=== PATIENT | female | born 1945 | race Caucasian/White ===

== ENCOUNTER 2016-07-13 12:57 | Emergency (ER) | payer OTHER ==
[~2016-07-13] VITALS: Wt 100.0 kg
[2016-07-13] MEDS ORDERED: IPRATROPIUM (NEB) 0.5 MG/2.5 ML AMP NEB STA (13:44)
[2016-07-13] MEDS ORDERED: predniSONE 20 MG TAB PO STA (13:44)
[2016-07-13] MEDS ORDERED: ALBUTEROL 0.5% (NEB) 2.5 MG/0.5 ML AMP NEB STA (13:44)
[2016-07-13] MEDS ORDERED: OMEP20CA16 PO (14:37)
--- NOTE | 2016-07-13 14:43 | RADRPT ---
PROCEDURE: XR Chest. CLINICAL INDICATION: History of asthma. Cough and shortness of breath. TECHNIQUE: Single frontal view. COMPARISON: None. FINDINGS: The lungs are clear. The heart size is normal. There is calcification in the aorta consistent with atherosclerosis. There is no pleural effusion. There is no pneumothorax. IMPRESSION: 1. Atherosclerosis. 2. Clear lungs. RPTAT: QQ .Christian Carvalho MD, MD Date Time Electronically viewed and signed by .Christian Carvalho MD, MD on 07/13/2016 14:42 .R/
--- NOTE | 2016-07-13 14:50 | ERD ---
ER Documentation Chief Complaint Date/Time DATE: 07/13/16 TIME: 14:47 Chief Complaint COUGH CONGESTION FOR 4 DAYS. MOD SOB. NO CP. NO N/V NOTED HPI This is a 71-year-old female with a history of asthma who presents to the emergency room for evaluation of a dry cough, congestion for the past 4 days. The patient does state that she has an inhaler at home and states that it is only helping a small amount. The patient denies any fevers or productive sputum and came to the ER today for evaluation. She is also denying any chest pain or palpitations. ROS All systems reviewed and are negative except as per history of present illness. Medications Home Meds Reported Medications Omeprazole* (Omeprazole*) 20 Mg Capsule.dr, 20 MG PO DAILY, #30 CAP 07/13/16 Allergies Allergies: Coded Allergies: No Known Allergy (Unverified , 07/13/16) PMhx/Soc Medical and Surgical Hx: pt denies Surgical Hx History of Surgery: No Anesthesia Reaction: No Hx Neurological Disorder: No Hx Respiratory Disorders: Yes (ASTHMA ) Hx Cardiac Disorders: Yes (HTN) Hx Psychiatric Problems: No Hx Miscellaneous Medical Probl: No Hx Alcohol Use: No Hx Substance Use: No Hx Tobacco Use: No Smoking Status: Never smoker Physical Exam Vitals Vital Signs Date Time Temp Pulse Resp B/P Pulse Ox O2 Delivery O2 Flow Rate FiO2 07/13/16 14:21 82 22 99 Nasal Cannula 2.0 07/13/16 14:09 Nasal Cannula 2 07/13/16 14:09 98.8 76 20 165/83 98 Room Air 07/13/16 14:09 Nasal Cannula 2.0 07/13/16 13:14 98.8 86 20 192/85 96 Physical Exam INITIAL VITAL SIGNS: Reviewed by me GENERAL: The patient is well developed and appropriate for usual state of health in no apparent distress HEENT: Pupils equal, round, and reactive to light. EOMI. There is no scleral icterus. NECK: C-spine is soft and supple, there is no meningismus. There is no cervical lymphadenopathy. LUNGS: And expiratory wheezing heard bilaterally, no rales or rhonchi HEART: Regular rate and rhythm, no murmurs, clicks, rubs or gallops. ABDOMEN: Soft, non-tender, non-distended. There are bowel sounds in all four quadrants. No rebound or guarding. EXTREMITIES: There is no peripheral cyanosis or edema. No focal swelling or erythema. NEUROLOGICAL: The patient moves all four extremities with 5/5 strength. Cranial nerves II - XII are intact. Normal gait. Alert and oriented SKIN: There is no apparent rash or petechiae. HEME/LYMPHATIC: There is no evidence of excessive bruising or lymphedema. PSYCHIATRIC: The patient does not appear anxious or depressed. Results 24 hrs Current Medications Medications (Trade) Dose Ordered Sig/Magalis Route PRN Reason Start Time Stop Time Status Last Admin Dose Admin Albuterol (Proventil 0.5% (Neb)) 10 mg ONCE STAT NEB 07/13/16 13:44 07/13/16 13:46 DC 07/13/16 14:20 Ipratropium [place] (Atrovent 0.02% (Neb)) 0.5 mg ONCE STAT NEB 07/13/16 13:44 07/13/16 13:46 DC 07/13/16 14:20 Prednisone (Prednisone) 60 mg ONCE STAT PO 07/13/16 13:44 07/13/16 13:46 DC 07/13/16 13:50 Procedures/MDM EKG: Rate/Rhythm: [Normal Sinus Rhythm] QRS, ST, T-waves: [No changes consistent w/ acute ischemia] Impression: [No evidence of ischemia or arrhythmia] Chest X-ray 1V Interpreted by me: Soft Tissue: No acute abnormalities Bones: No acute abnormalities Mediastinum/Cardiac Silhouette/Lungs: [No acute abnormalities] This is a 71-year-old female who presents to the emergency room for evaluation of shortness of breath and a dry cough. She did have mild wheezing on my examination and was given a breathing treatment. EKG is nonischemic, chest x- ray is clear. She is not hypoxic, not tachycardic. In no respiratory distress after the breathing treatment. She does say she feels better. The patient was given Robitussin in the emergency room as well as prednisone. She will be discharged home with a prescription for Robitussin and prednisone with instructions to follow-up with her primary care physician or return to the ER if her symptoms worsen. Departure Diagnosis: Primary Impression: Asthmatic bronchitis Condition: Stable ASHLYN KELLEY DO Jul 13, 2016 14:50
[2016-07-13] MEDS ORDERED: PRED20TA PO (14:51)
[2016-07-13] MEDS ORDERED: UDROBDM PO (14:51)
[2016-07-13] MEDS ORDERED: GUAIFENESIN/DM 5ML CUP PO ONE (15:00)
[2016-07-13 15:40] VITALS: BP 153/73; PULSE 82; RESP 20; TEMP 97.9
== END 2016-07-13 15:52 | disposition home or self-care (01) ==
LOC: E/R 12:57
DX: J45.901 Unspecified asthma with (acute) exacerbation (principal); I10 Essential (primary) hypertension
CPT/HCPCS: 71010; 94664; 99284; J7512

== ENCOUNTER 2016-08-16 11:08 | Emergency (ER) | payer OTHER ==
[~2016-08-16] VITALS: Ht 165.1 cm; Wt 98.5 kg
[~2016-08-16 11:08] MED LIST: OMEP20CA16 PO; PRED20TA PO; UDROBDM PO
[2016-08-16 11:26] VITALS: Ht 165.1 cm; Wt 98.5 kg
[2016-08-16] MEDS ORDERED: FAMOTIDINE 20 MG INJ IV STA (12:15)
[2016-08-16] MEDS ORDERED: morphine 2 MG INJ IV STA (12:15)
[2016-08-16] MEDS ORDERED: SOD CHLORIDE 0.9% 1,000 ML IV STA (12:15)
[2016-08-16] MEDS ORDERED: ONDANSETRON 4 MG INJ IV STA (12:15)
[2016-08-16 13:07] LABS: ADD SCAN DIFF NO
[2016-08-16 13:09] LABS: BASOPHILS % 0.3 % (0.0-2.0); EOSINOPHILS % 0.6 % (0.0-7.0); HEMATOCRIT 44.6 % (37.0-47.0); HEMOGLOBIN 14.8 g/dl (12.0-16.0); LYMPHOCYTES # 1.3 10^3/ul (0.8-2.9); LYMPHOCYTES % 19.9 % (15.0-51.0); MEAN CORPUSCULAR HEMOGLOBIN 27.8 pg (29.0-33.0); MEAN CORPUSCULAR HGB CONC 33.2 g/dl (32.0-37.0); MEAN CORPUSCULAR VOLUME 83.7 fl (82.0-101.0); MEAN PLATELET VOLUME 12.7 fl (7.4-10.4); MONOCYTE # 0.7 10^3/ul (0.3-0.9); MONOCYTES % 9.7 % (0.0-11.0); NEUTROPHIL # 4.7 10^3/ul (1.6-7.5); NEUTROPHILS % 69.2 % (39.0-77.0); PLATELET COUNT 158 10^3/UL (140-415); RED BLOOD COUNT 5.33 10^6/ul (4.20-5.40); RED CELL DISTRIBUTION WIDTH 14.9 % (11.5-14.5); WHITE BLOOD COUNT 6.7 10^3/ul (4.8-10.8)
[2016-08-16 13:20] LABS: ALBUMIN 4.1 g/dl (3.3-4.9); POTASSIUM 3.2 mmol/L (3.5-5.1)
[2016-08-16 13:22] LABS: CREATININE 0.61 mg/dl (0.44-1.00)
[2016-08-16 13:23] LABS: ALBUMIN/GLOBULIN RATIO 1.05; BILIRUBIN,INDIRECT 0.2 mg/dl (0-1.1); BILIRUBIN,TOTAL 0.2 mg/dl (0.2-1.3)
[2016-08-16 13:24] LABS: ADD UMIC YES; URINE BILIRUBIN (Dip) NEGATIVE (NEGATIVE); URINE BLOOD (Dip) NEGATIVE (NEGATIVE); URINE COLOR YELLOW (YELLOW); URINE GLUCOSE (Dip) NEGATIVE (NEGATIVE); URINE KETONES (Dip) TRACE (NEGATIVE); URINE LEUKOCYTE ESTERASE (Dip) TRACE (NEGATIVE); URINE NITRITE (Dip) NEGATIVE (NEGATIVE); URINE TOTAL PROTEIN (Dip) TRACE (NEGATIVE); URINE UROBILINOGEN (Dip) 0.2 E.U./dL (0.1-1.0)
--- NOTE | 2016-08-16 13:29 | RADRPT ---
PROCEDURE: CT Abdomen and pelvis without contrast. CLINICAL INDICATION: Left-sided abdominal pain for 3 days TECHNIQUE: CT scan of the abdomen and pelvis with contrast was performed on a multidetector high-r esolution CT scan. . Coronal and sagittal reformatted images were obtained from the axial source i mages. Standard CT scan of the abdomen pelvis without contrast protocols were performed. The total exam CTDI equals 23.45 mGy and the total exam DLP equals 1434.86 mGy-cm. One or more of the following dose reduction techniques were used: - Automated exposure control. - Adjustment of the mA and/or kV according to patient size. Use of iterative reconstruction technique. COMPARISON: None. FINDINGS: The kidneys are normal in size without evidence of calcified urinary calculi. There is mild pyeloca liectasis bilaterally but no hydronephrosis. There is a 3 mm subcapsular lateral right mid renal hyp er density likely a hemorrhagic cyst. There are no other intra renal masses bilaterally. Urinary bl adder is contracted but otherwise unremarkable. There are numerous vascular calcifications posterio r to the urinary bladder. The uterus is anteverted anteflexed with an intrauterine device present. There are no adnexal masses. The liver spleen pancreas adrenal glands are unremarkable. The gallbladder is unremarkable and ther e is no evidence of biliary ductal dilation. Negative for intra-abdominal or free air, free fluid, abscesses or lymphadenopathy. There is a small hiatal hernia. The stomach is otherwise unremarkable. The small bowel is unremark able. The appendix is unremarkable. There is diverticular changes of the sigmoid and descending co eric but no CT scan evidence of diverticulitis. There is atherosclerotic vascular disease of the aorta but no aneurysm. There is a grade 1 anterior spondylolisthesis of L4 on L5 vertebral body. No other subluxations. There are degenerative change s lower thoracic and lumbar spine. There are no acute osseous findings. There are no osteoblastic/ osteolytic lesions. The lung bases are unremarkable. IMPRESSION: 1. No evidence of calcified urinary calculi. Mild pyelocaliectasis bilaterally but no definite hyd ronephrosis. 2. 3 mm subcapsular lateral right mid renal hyper density likely a hemorrhagic cyst. No other init ial masses bilaterally. 3. Diverticulosis of the left colon but no CT scan evidence of diverticulitis. 4. Small hiatal hernia. 5. Negative for intra-abdominal free air free fluid abscesses or lymphadenopathy. RPTAT:AAJJ Lito Glaser Physician Date Time Electronically viewed and signed by Lito Glaser Physician on 08/16/2016 13:28 /
[2016-08-16 13:35] LABS: URINE RBCS NONE SEEN /HPF (0)
--- NOTE | 2016-08-16 13:42 | ERD ---
ER Documentation Chief Complaint Date/Time DATE: 08/16/16 TIME: 13:39 Chief Complaint LEFT LOWER QUADRANT PAIN,X 2 DAYS HPI This 71-year-old female presents to the emergency room for evaluation of left sided abdominal pain for the past 2 days. She denies any aggravating factors for her pain besides urination, denies any relieving factors for her pain. She describes her pain as an aching sharp pain in nature the patient the patient denies any, fever, vaginal bleeding or vaginal discharge, she also denies any nausea, vomiting or diarrhea. The patient came to the emergency room today for evaluation. ROS All systems reviewed and are negative except as per history of present illness. Medications Home Meds Active Scripts Guaifenesin-Dextromethorphan* (Robitussin* DM) 100MG/10MG/5ML Syrup, 10 ML PO Q4H Y for COUGH for 10 Days, ML Prov:ASHLYN KELLEY DO 07/13/16 Prednisone* (Prednisone*) 20 Mg Tab, 40 MG PO DAILY for 4 Days, TAB Prov:ASHLYN KELLEY DO 07/13/16 Reported Medications Omeprazole* (Omeprazole*) 20 Mg Capsule.dr, 20 MG PO DAILY, #30 CAP 07/13/16 Allergies Allergies: Coded Allergies: No Known Allergy (Unverified , 07/13/16) PMhx/Soc History of Surgery: No Anesthesia Reaction: No Hx Neurological Disorder: No Hx Respiratory Disorders: Yes (ASTHMA ) Hx Cardiac Disorders: Yes (HTN) Hx Psychiatric Problems: No Hx Miscellaneous Medical Probl: No Hx Alcohol Use: No Hx Substance Use: No Hx Tobacco Use: No Smoking Status: Never smoker Physical Exam Vitals Vital Signs Date Time Temp Pulse Resp B/P Pulse Ox O2 Delivery O2 Flow Rate FiO2 08/16/16 11:26 98.2 75 18 174/74 98 Physical Exam INITIAL VITAL SIGNS: Reviewed by me GENERAL: The patient is well developed and appropriate for usual state of health in no apparent distress HEENT: Pupils equal, round, and reactive to light. EOMI. There is no scleral icterus. NECK: C-spine is soft and supple, there is no meningismus. There is no cervical lymphadenopathy. LUNGS: Clear to auscultation bilaterally. There are no rales, wheezes or rhonchi. HEART: Regular rate and rhythm, no murmurs, clicks, rubs or gallops. ABDOMEN: Left lower quadrant tenderness to palpation, mild suprapubic tenderness to palpation, otherwise soft, non-tender, non-distended. There are bowel sounds in all four quadrants. No rebound or guarding. EXTREMITIES: There is no peripheral cyanosis or edema. No focal swelling or erythema. NEUROLOGICAL: The patient moves all four extremities with 5/5 strength. Cranial nerves II - XII are intact. Normal gait. Alert and oriented SKIN: There is no apparent rash or petechiae. HEME/LYMPHATIC: There is no evidence of excessive bruising or lymphedema. PSYCHIATRIC: The patient does not appear anxious or depressed. Result Diagram: 08/16/16 1238 08/16/16 1238 Results 24 hrs Laboratory Tests Test 08/16/16 12:38 08/16/16 12:40 White Blood Count 6.710^3/ul Red Blood Count 5.3310^6/ul Hemoglobin 14.8g/dl Hematocrit 44.6% Mean Corpuscular Volume 83.7fl Mean Corpuscular Hemoglobin 27.8pg Mean Corpuscular Hemoglobin Concent 33.2g/dl Red Cell Distribution Width 14.9% Platelet Count 22341^3/UL Mean Platelet Volume 12.7fl Neutrophils % 69.2% Lymphocytes % 19.9% Monocytes % 9.7% Eosinophils % 0.6% Basophils % 0.3% Nucleated Red Blood Cells % 0.0/100WBC Neutrophils # 4.710^3/ul Lymphocytes # 1.310^3/ul Monocytes # 0.710^3/ul Eosinophils # 0.010^3/ul Basophils # 0.010^3/ul Nucleated Red Blood Cells # 0.010^3/ul Sodium Level 141mmol/L Potassium Level 3.2mmol/L Chloride Level 100mmol/L Carbon Dioxide Level 26mmol/L Anion Gap 18 Blood Urea Nitrogen 9mg/dl Creatinine 0.61mg/dl Glucose Level 185mg/dl Calcium Level 9.0mg/dl Total Bilirubin 0.2mg/dl Direct Bilirubin 0.00mg/dl Indirect Bilirubin 0.2mg/dl Aspartate Amino Transf (AST/SGOT) 45IU/L Alanine Aminotransferase (ALT/SGPT) 35IU/L Alkaline Phosphatase 107IU/L Total Protein 8.0g/dl Albumin 4.1g/dl Globulin 3.90g/dl Albumin/Globulin Ratio 1.05 Lipase 124U/L Urine Color YELLOW Urine Clarity CLEAR Urine pH 6.0 Urine Specific [place] 1.025 Urine Ketones TRACE Urine Nitrite NEGATIVE Urine Bilirubin NEGATIVE Urine Urobilinogen 0.2 E.U./dL Urine Leukocyte Esterase TRACE Urine Microscopic RBC NONE SEEN/HPF Urine Microscopic WBC 2-5/HPF Urine Epithelial Cells OCCASIONAL Urine Hemoglobin NEGATIVE Urine Glucose NEGATIVE% Urine Total Protein TRACE Current Medications Medications (Trade) Dose Ordered Sig/Magalis Route PRN Reason Start Time Stop Time Status Last Admin Dose Admin Sodium Chloride (NS) 1,000 ml @ 1,000 mls/hr Q1H STAT IV 08/16/16 12:15 08/16/16 13:14 DC 08/16/16 12:30 Morphine Sulfate (morphine) 2 mg ONCE STAT IV 08/16/16 12:15 08/16/16 12:16 DC 08/16/16 12:30 Ondansetron HCl (Zofran Inj) 4 mg ONCE STAT IV 08/16/16 12:15 08/16/16 12:16 DC 08/16/16 12:30 Famotidine (Pepcid Iv) 20 mg ONCE STAT IV 08/16/16 12:15 08/16/16 12:16 DC 08/16/16 12:30 Potassium Chloride (Klor-Con 10) 30 meq ONCE ONCE PO 08/16/16 14:00 08/16/16 14:01 UNV Procedures/MDM CT abdomen pelvis: 1. No evidence of calcified urinary calculi. Mild pyelocaliectasis bilaterally but no definite hydronephrosis. 2. 3 mm subcapsular lateral right mid renal hyper density likely a hemorrhagic cyst. No other initial masses bilaterally. 3. Diverticulosis of the left colon but no CT scan evidence of diverticulitis. 4. Small hiatal hernia. 5. Negative for intra-abdominal free air free fluid abscesses or lymphadenopathy. This 71-year-old female presents to the emergency room for evaluation of left- sided abdominal pain. When I evaluated her she did have left lower quadrant tenderness to palpation. She also had mild suprapubic tenderness to palpation. I did obtain lab work and CT. Lab work does not show any significant findings except for mild hypokalemia. The patient was given 30 mEq of potassium by mouth. Given her left lower quadrant tenderness a CT of the abdomen pelvis was obtained which does not show any signs of obstruction, or diverticulitis. The patient was given morphine in the emergency room and upon my reevaluation she says she is feeling better. Her urinalysis does have 2-5 white blood cells and positive leukocyte Estrace. Given her pain and worsening of pain with urination this patient will be discharged home with a prescription for ciprofloxacin to take. She will also be given a prescription for Motrin. Departure Diagnosis: Primary Impression: Abdominal pain Additional Impressions: Hypokalemia Cystitis Condition: Stable ASHLYN KELLEY DO Aug 16, 2016 13:42
[2016-08-16] MEDS ORDERED: ALBU90AE INHALATION (13:43)
[2016-08-16] MEDS ORDERED: CIPR500T4 PO (13:44)
[2016-08-16] MEDS ORDERED: IBUP-1542 PO (13:44)
[2016-08-16] MEDS ORDERED: TRAV4OP25 BOTH EYES (13:54)
[2016-08-16] MEDS ORDERED: NIFE30TA2 PO (13:55)
[2016-08-16] MEDS ORDERED: OMEP20CA16 PO (13:59)
[2016-08-16] MEDS ORDERED: HYD25 PO (13:59)
[2016-08-16] MEDS ORDERED: POTASSIUM CHLORIDE (SR) 10 MEQ TAB PO ONE (14:00)
[2016-08-16 14:49] VITALS: BP 128/79; PULSE 81; RESP 18; TEMP 98.2
== END 2016-08-16 14:50 | disposition home or self-care (01) ==
LOC: E/R 11:08
DX: R10.32 Left lower quadrant pain (principal); E87.6 Hypokalemia; J45.909 Unspecified asthma, uncomplicated; I10 Essential (primary) hypertension; N30.90 Cystitis, unspecified without hematuria
CPT/HCPCS: 36415; 74176; 80053; 81001; 83690; 85025; 96374; 96375; 99285; J2270; J2405; J7030; 81003

== ENCOUNTER 2016-08-22 09:35 | Emergency (ER) | payer OTHER ==
[~2016-08-22] VITALS: Wt 100.0 kg
[~2016-08-22 09:35] MED LIST changes: +ALBU90AE INHALATION; +CIPR500T4 PO; +HYD25 PO; +IBUP-1542 PO; +NIFE30TA2 PO; -PRED20TA PO; +TRAV4OP25 BOTH EYES; -UDROBDM PO
[2016-08-22] MEDS ORDERED: ONDANSETRON 4 MG INJ IV STA (09:55)
[2016-08-22] MEDS ORDERED: SOD CHLORIDE 0.9% 1,000 ML IV STA (09:55)
[2016-08-22] MEDS ORDERED: morphine 4 MG/ML VIAL IV STA (09:55)
[2016-08-22 10:25] LABS: ADD SCAN DIFF NO
[2016-08-22 10:30] LABS: BASOPHILS % 0.5 % (0.0-2.0); EOSINOPHILS # 0.1 10^3/ul (0.0-0.5); EOSINOPHILS % 1.2 % (0.0-7.0); HEMOGLOBIN 14.8 g/dl (12.0-16.0); LYMPHOCYTES # 3.7 10^3/ul (0.8-2.9); LYMPHOCYTES % 41.4 % (15.0-51.0); MEAN CORPUSCULAR HEMOGLOBIN 27.2 pg (29.0-33.0); MEAN CORPUSCULAR HGB CONC 32.9 g/dl (32.0-37.0); MEAN CORPUSCULAR VOLUME 82.7 fl (82.0-101.0); MEAN PLATELET VOLUME 12.5 fl (7.4-10.4); MONOCYTE # 0.8 10^3/ul (0.3-0.9); MONOCYTES % 8.9 % (0.0-11.0); NEUTROPHIL # 4.2 10^3/ul (1.6-7.5); NEUTROPHILS % 47.8 % (39.0-77.0); PLATELET COUNT 212 10^3/UL (140-415); RED BLOOD COUNT 5.44 10^6/ul (4.20-5.40); RED CELL DISTRIBUTION WIDTH 14.6 % (11.5-14.5); WHITE BLOOD COUNT 8.8 10^3/ul (4.8-10.8)
[2016-08-22 10:37] LABS: ALBUMIN 4.4 g/dl (3.3-4.9); CHLORIDE 96 mmol/L (97-110)
[2016-08-22 10:38] LABS: POTASSIUM 3.6 mmol/L (3.5-5.1); SODIUM 135 mmol/L (135-144)
[2016-08-22] MEDS ORDERED: SOD CHLORIDE 0.9% 100 ML ONE (10:38)
[2016-08-22] MEDS ORDERED: IODIXANOL LOCM 100 ML BTL ONE (10:38)
[2016-08-22 10:40] LABS: ALBUMIN/GLOBULIN RATIO 1.12; ALKALINE PHOSPHATASE 108 IU/L (42-121); AMYLASE 64 U/L (11-123); ANION GAP 15 (8-16); ASPARTATE AMINO TRANSFERASE 52 IU/L (15-46); BILIRUBIN,INDIRECT 0.9 mg/dl (0-1.1); BILIRUBIN,TOTAL 0.9 mg/dl (0.2-1.3); BLOOD UREA NITROGEN 12 mg/dl (7-20); CARBON DIOXIDE 28 mmol/L (21-31); CREATININE 0.63 mg/dl (0.44-1.00); GLUCOSE 144 mg/dl (70-220); TOTAL PROTEIN 8.3 g/dl (6.1-8.1)
[2016-08-22 10:41] LABS: ALANINE AMINOTRANSFERASE 46 IU/L (13-69); CALCIUM 9.3 mg/dl (8.4-10.2)
[2016-08-22 10:42] LABS: INR 0.96; PROTIME 12.8 Sec (12.2-14.2)
[2016-08-22 10:43] LABS: PARTIAL THROMBOPLASTIN TIME 28.3 Sec (25.0-35.0)
--- NOTE | 2016-08-22 11:25 | RADRPT ---
PROCEDURE: CT Abdomen and Pelvis with contrast. CLINICAL INDICATION: Worsening left lower quadrant pain TECHNIQUE: CT of the abdomen and pelvis was performed on a multi-detector scanner following the un complicated IV administration of 100 cc of Visipaque 320. Coronal and sagittal images were reformat javier from the axial data set. One or more of the following dose reduction techniques were used: auto mated exposure control, adjustment of the mA and/or kV according to patient size, use of iterative reconstruction technique. CTDI = 23.68 mGy. DLP = 1554.2 mGy-cm. COMPARISON: CT, 08/16/2016 FINDINGS: CT abdomen: The lung bases are clear. The heart size is normal, without pericardial effusion. Liver, gallbladd er, biliary tree, pancreas, spleen, adrenal glands and kidneys are unremarkable. There is no urolit hiasis or obstructive uropathy. The stomach is grossly unremarkable. There is no abdominal aortic aneurysm or dissection. Aortic vascular calcifications are present. T here is no retroperitoneal lymphadenopathy. The cynthia hepatis region is clear. CT pelvis: No bowel obstruction, free intraperitoneal air or abscess is identified. Scattered colonic divertic vanessa are noted without diverticulitis. The appendix is well visualized and normal. There is no coli tis. Urinary bladder is unremarkable. IUD is seen within the uterus. Adnexa are grossly unremarka ble. No pelvic mass, free fluid or lymphadenopathy is identified. The surrounding osseous structures are remarkable for degenerative spondylosis of the spine. No ost eolytic or osteoblastic lesion is detected. There is chronic grade 1 anterolisthesis at L4-5 seconda ry to facet arthrosis. IMPRESSION: 1. Scattered colonic diverticula are noted, without diverticulitis. 2. Aortoiliac atherosclerotic calcifications are present. 3. IUD is again seen within the uterus. 4. No mass, lymphadenopathy, or focal acute inflammatory process is identified. RPTAT: EE .Neo Reilly MD, MD Date Time Electronically viewed and signed by .Neo Reilly MD, MD on 08/22/2016 11:24 .R/
[2016-08-22 11:26] LABS: TROPONIN-I < 0.012 ng/ml (0.00-0.12)
--- NOTE | 2016-08-22 12:09 | ERD ---
ER Documentation Chief Complaint Date/Time DATE: 08/22/16 TIME: 12:03 Chief Complaint left side abdominal pain for a few days. seen in er for same no releif HPI This is a 70-year-old Tristanian-speaking female that presents the emergency department complaining of left lower quadrant pain that has been present for the past 8 days. The patient had been seen 5 days prior to arrival on the 2016 in the emergency department for the same pain. She indicated that a CT scan had been performed and states she had diverticulosis. The patient has been taking 600 mg of Motrin which has improved her pain but once the medication wears off she gets a left lower quadrant pain returns. She describes it as a sharp shooting pain that radiates to the left flank region. She denies any frequency urgency or dysuria. She has had no fevers or shaking or chills. She is not currently on antibiotics. She denies any chest pain or pressure that radiates to the neck arm back or jaw. She denies any recent remote trauma to the abdomen. ROS All systems reviewed and are negative except as per history of present illness. Medications Home Meds Active Scripts Ibuprofen* (Motrin*) 600 Mg Tab, 600 MG PO Q8, #30 TAB Prov:ASHLYN KELLEY DO 08/16/16 Ciprofloxacin Hcl* (Ciprofloxacin Hcl*) 500 Mg Tablet, 500 MG PO BID for 7 Days , TAB Prov:ASHLYN KELLEY DO 08/16/16 Reported Medications Omeprazole* (Omeprazole*) 20 Mg Capsule.dr, 20 MG PO DAILY, #30 CAP 08/16/16 Hydrochlorothiazide* (Hydrochlorothiazide*) 25 Mg Tab, 25 MG PO DAILY, #30 TAB 08/16/16 Nifedipine (Procardia Xl) 30 Mg Tab.er.24, 30 MG PO DAILY, TAB 08/16/16 Travoprost* (Travatan*) 0.004%-2.5 Ml Opht, 1 DROP BOTH EYES QHS, #1 BOTTLE 08/16/16 Albuterol Sulfate (Proair Respiclick) 90 Mcg Aer.pow.ba, 1 PUFF INHALATION Q4 Y for PRN, #1 BOTTLE 08/16/16 Discontinued Reported Medications Omeprazole* (Omeprazole*) 20 Mg Capsule.dr, 20 MG PO DAILY, #30 CAP 07/13/16 Discontinued Scripts Guaifenesin-Dextromethorphan* (Robitussin* DM) 100MG/10MG/5ML Syrup, 10 ML PO Q4H Y for COUGH for 10 Days, ML Prov:ASHLYN KELLEY DO 07/13/16 Prednisone* (Prednisone*) 20 Mg Tab, 40 MG PO DAILY for 4 Days, TAB Prov:ASHLYN KELLEY DO 07/13/16 Allergies Allergies: Coded Allergies: No Known Allergy (Unverified , 08/16/16) PMhx/Soc History of Surgery: No Anesthesia Reaction: No Hx Neurological Disorder: No Hx Respiratory Disorders: Yes (ASTHMA ) Hx Cardiac Disorders: Yes (HTN) Hx Psychiatric Problems: No Hx Miscellaneous Medical Probl: No Hx Alcohol Use: No Hx Substance Use: No Hx Tobacco Use: No Smoking Status: Never smoker Physical Exam Vitals Vital Signs Date Time Temp Pulse Resp B/P Pulse Ox O2 Delivery O2 Flow Rate FiO2 08/22/16 09:36 98.5 91 21 171/72 95 Physical Exam Constitutional:Well-developed. Well-nourished. HEENT:Normocephalic. Atraumatic.Pupils were equal round reactive to light. Moist mucous membranes.No tonsillar exudates. Neck: No nuchal rigidity. No lymphadenopathy. No posterior cervical spine tenderness or step-offs. Respiratory: Not using accessory muscles of respiration.Lungs were clear to auscultation bilaterally. No rhonchi. No rales. No wheezing. Cardiovascular: Regular rate regular rhythm.No murmurs. No rubs were appreciated.S1, S2 normal. Distal pulses are palpable 2+ bilaterally. GI: Abdomen was soft. Tenderness in the left lower quadrant. No CVA tenderness. Non Distended. No pulsatile abdominal masses or bruits. No rebound. No guarding. Bowel sounds were present and normal. Muscle skeletal: Full range of motion of both the upper and lower extremities bilaterally.Normal muscle tone.No assymetrical calf tenderness or swelling. Skin: No petechia, no purpura. No lesions on the palms or the soles of the feet. No maculopapular rash. NEURO: Patient was alert, awake, orientated x3.No facial droop. Gait observed and normal with no ataxia.Speech had regular rate and rhythm. No focal neurological deficits. Result Diagram: 08/22/16 1000 08/22/16 1000 Results 24 hrs Laboratory Tests Test 08/22/16 10:00 White Blood Count 8.810^3/ul Red Blood Count 5.4410^6/ul Hemoglobin 14.8g/dl Hematocrit 45.0% Mean Corpuscular Volume 82.7fl Mean Corpuscular Hemoglobin 27.2pg Mean Corpuscular Hemoglobin Concent 32.9g/dl Red Cell Distribution Width 14.6% Platelet Count 03744^3/UL Mean Platelet Volume 12.5fl Neutrophils % 47.8% Lymphocytes % 41.4% Monocytes % 8.9% Eosinophils % 1.2% Basophils % 0.5% Nucleated Red Blood Cells % 0.0/100WBC Neutrophils # 4.210^3/ul Lymphocytes # 3.710^3/ul Monocytes # 0.810^3/ul Eosinophils # 0.110^3/ul Basophils # 0.010^3/ul Nucleated Red Blood Cells # 0.010^3/ul Prothrombin Time 12.8Sec Prothrombin Time Ratio 1.0 INR International Normalized Ratio 0.96 Activated Partial Thromboplast Time 28.3Sec Sodium Level 135mmol/L Potassium Level 3.6mmol/L Chloride Level 96mmol/L Carbon Dioxide Level 28mmol/L Anion Gap 15 Blood Urea Nitrogen 12mg/dl Creatinine 0.63mg/dl Glucose Level 144mg/dl Calcium Level 9.3mg/dl Total Bilirubin 0.9mg/dl Direct Bilirubin 0.00mg/dl Indirect Bilirubin 0.9mg/dl Aspartate Amino Transf (AST/SGOT) 52IU/L Alanine Aminotransferase (ALT/SGPT) 46IU/L Alkaline Phosphatase 108IU/L Troponin I < 0.012ng/ml Total Protein 8.3g/dl Albumin 4.4g/dl Globulin 3.90g/dl Albumin/Globulin Ratio 1.12 Amylase Level 64U/L Lipase 189U/L Current Medications Medications (Trade) Dose Ordered Sig/Magalis Route PRN Reason Start Time Stop Time Status Last Admin Dose Admin Sodium Chloride (NS) 1,000 ml @ 1,000 mls/hr Q1H STAT IV 08/22/16 09:55 08/22/16 10:54 DC 08/22/16 10:08 Morphine Sulfate (morphine) 4 mg ONCE STAT IV 08/22/16 09:55 3/29/17 09:57 DC 08/22/16 10:11 Ondansetron HCl (Zofran Inj) 4 mg ONCE STAT IV 08/22/16 09:55 08/22/16 09:57 DC 08/22/16 10:07 IV Flush 10 ml 10 ml STK-MED ONCE .ROUTE 08/22/16 10:38 08/22/16 10:39 DC 08/22/16 10:52 Sodium Chloride (NS) 100 ml @ ud STK-MED ONCE .ROUTE 08/22/16 10:38 08/22/16 10:39 DC 08/22/16 10:52 Iodixanol (Visipaque Locm) 100 ml STK-MED ONCE .ROUTE 08/22/16 10:38 08/22/16 10:39 DC 08/22/16 10:53 Procedures/MDM This patient presented to the emergency department with abdominal pain and was seen and evaluated by myself. My differential diagnosis included but was not limited to abdominal aortic aneurysm, appendicitis, pancreatitis, perforated peptic ulcer, perforated viscus, Boerhaaves syndrome or visceral pain such as diverticulitis, DKA, esophagitis, hepatitis or bowel obstruction. The patient was placed on a monitor tech, continuous pulse oximetry, and IV access was established by nursing staff. The patient received intravenous morphine and Zofran. 12 Lead EKG tracing ordered and reviewed by myself showed: Sinus bradycardia 55 bpm and no arrhythmia. ND interval normal. QRS duration normal. No ST segment elevation No ST segment depression. No changes consistent with acute ischemia. I did repeat the CT scan of the abdomen in order to rule out an acute surgical abdomen such as perforation from the diverticuli. CT scan reviewed by the radiologist myself indicated the followin. Scattered colonic diverticula are noted, without diverticulitis. 2. Aortoiliac atherosclerotic calcifications are present. 3. IUD is again seen within the uterus. 4. No mass, lymphadenopathy, or focal acute inflammatory process is identified. The patient had no electrolyte abnormalities. The patient's pain had completely resolved. I explained to the patient the importance of adhering to a specific diet at home to prevent further complications of re-exacerbation of the pain from the diverticulosis. The patient was sent home with Willet to take as needed for breakthrough pain. She was also placed on antibiotics that she was requesting a dose at this time despite me explaining that there is no evidence of an infectious process such as diverticulitis. She was given a 7 day course of ciprofloxacin and Flagyl. The patient was discharged home in fair condition. They were instructed to return to the emergency department at any time if there was any worsening of their condition. The patient stated they would follow up with their PCP in the next 24-48 hours to initiate a suitable medication regimen under the care of their PCP as well as to allow their PCP to monitor any drug reactions. The patient was discharged home with prescriptions after they gave informed consent to the new medication. They were also fully informed by myself on the adverse effects and adverse drug interactions in order to provide adequate safeguards to prevent possible adverse reactions to medications. Departure Diagnosis: Primary Impression: Diverticulosis Diverticulosis site: diverticulosis of large intestine Diverticulosis bleeding: diverticulosis without bleeding Qualified Code: K57.30 - Diverticulosis of large intestine without hemorrhage Condition: Fair CHAIM,CHIVO Aug 22, 2016 12:09
[2016-08-22 12:42] LABS: ADD UMIC NO; URINE BILIRUBIN (Dip) NEGATIVE (NEGATIVE); URINE BLOOD (Dip) NEGATIVE (NEGATIVE); URINE COLOR LT. YELLOW (YELLOW); URINE GLUCOSE (Dip) NEGATIVE (NEGATIVE); URINE KETONES (Dip) NEGATIVE (NEGATIVE); URINE LEUKOCYTE ESTERASE (Dip) NEGATIVE (NEGATIVE); URINE NITRITE (Dip) NEGATIVE (NEGATIVE); URINE TOTAL PROTEIN (Dip) NEGATIVE (NEGATIVE); URINE UROBILINOGEN (Dip) 0.2 E.U./dL (0.1-1.0)
[2016-08-22] MEDS ORDERED: METR500T PO (13:33)
[2016-08-22] MEDS ORDERED: CIPR500T4 PO (13:33)
[2016-08-22 14:20] VITALS: BP 139/79; PULSE 88; RESP 20
== END 2016-08-22 14:32 | disposition home or self-care (01) ==
LOC: E/R 09:35
DX: K57.30 Diverticulosis of large intestine without perforation or abscess without bleeding (principal); R40.2252 Coma scale, best verbal response, oriented, at arrival to emergency department; I10 Essential (primary) hypertension; J45.909 Unspecified asthma, uncomplicated; R40.2142 Coma scale, eyes open, spontaneous, at arrival to emergency department; R40.2362 Coma scale, best motor response, obeys commands, at arrival to emergency department
CPT/HCPCS: 74177; 80053; 81003; 82150; 83690; 84484; 85025; 85610; 85730; 87086; 96374; 96375; 99285; J2270; J2405; J7030; Q9967

== ENCOUNTER 2017-11-04 18:40 | Emergency (ER) | END 2017-11-04 20:37 | disposition home or self-care (01) ==

== ENCOUNTER 2019-01-16 18:03 | Inpatient (IN) | payer OTHER ==
[~2019-01-16] VITALS: Ht 165.1 cm; Wt 103.6 kg
[~2019-01-16 18:03] MED LIST changes: +ALBU8.5H8 INH; +APIX5TAB PO; +ASPI-831 PO; +ATOR40TA68 PO; -CIPR500T4 PO; +D-ME473S2 PO; +FURO-110 PO; -HYD25 PO; +HYDR25TA6 PO; +LEVO750T25 PO; +LOSA100T15 PO; +METO-335 PO
[2019-01-16] MEDS ORDERED: SOD CHLORIDE 0.9% 1,000 ML IV STA (18:10)
[2019-01-16] MEDS ORDERED: ASPIRIN 300 MG SUPP PR STA (18:10)
[2019-01-16] MEDS ORDERED: SOD CHLORIDE 0.9% 50 ML IV ONE (18:30)
[2019-01-16] MEDS ORDERED: ALTEPLASE 100 MG INJ IV* ONE (18:30)
[2019-01-16] MEDS ORDERED: ALTEPLASE (tPA) 1 MG/ML BOLUS SYG IV* ONE (18:30)
[2019-01-16] MEDS ORDERED: ENALAPRILAT 1.25 MG INJ IV ONE (19:00)
[2019-01-16] MEDS ORDERED: CLOPIDOGREL 75 MG TAB PO ONE (19:00)
[2019-01-16] MEDS ORDERED: IOHEXOL 100 ML ONE (19:40)
[2019-01-16] MEDS ORDERED: SOD CHLORIDE 0.9% 100 ML ONE (19:40)
[2019-01-16] MEDS ORDERED: ONDANSETRON 4 MG INJ IV PRN (20:00)
[2019-01-16] MEDS ORDERED: BISACODYL (EC) 5 MG TAB PO PRN (20:00)
[2019-01-16] MEDS ORDERED: NACL 0.9% 3 ML SYG IV SCH (20:00)
[2019-01-16] MEDS ORDERED: DOCUSATE SODIUM 100 MG CAP PO PRN (20:00)
[2019-01-16] MEDS ORDERED: ACETAMINOPHEN 325 MG TAB PO PRN (20:00)
[2019-01-16] MEDS ORDERED: hydrALAzine 20 MG INJ IV PRN (20:00)
[2019-01-16 22:58] VITALS: BP 135/64; PULSE 65; RESP 17
[2019-01-16 23:00] VITALS: Ht 165.1 cm; Wt 103.6 kg
[2019-01-17] MEDS ORDERED: ATORVASTATIN 40 MG TAB PO ONE (03:30)
[2019-01-17 04:19] VITALS: BP 155/68; PULSE 52; RESP 16
[2019-01-17 07:20] VITALS: BP 175/75; PULSE 66; RESP 19
[2019-01-17] MEDS: CLOPIDOGREL 75 MG TAB PO SCH (10:06)
[2019-01-17] MEDS: ASPIRIN 81 MG TAB PO SCH (10:07)
[2019-01-17 11:45] VITALS: BP 188/77; PULSE 67
[2019-01-17 15:37] VITALS: BP 140/65; PULSE 57; RESP 18
[2019-01-17 19:59] VITALS: BP 151/65; PULSE 65; RESP 20
[2019-01-17] MEDS: ATORVASTATIN 40 MG TAB PO SCH (21:20)
[2019-01-18] VITALS (7 sets, daily range): BP systolic 142–195; BP diastolic 64–93; PULSE 59–66; RESP 18–20
[2019-01-18] MEDS: ASPIRIN 81 MG TAB PO SCH (09:55)
[2019-01-18] MEDS: CLOPIDOGREL 75 MG TAB PO SCH (09:55)
[2019-01-18] MEDS: ATORVASTATIN 40 MG TAB PO SCH (20:43)
[2019-01-18] MEDS ORDERED: LOSARTAN 50 MG TAB PO ONE (23:00)
[2019-01-19] VITALS (11 sets, daily range): BP systolic 114–195; BP diastolic 55–80; PULSE 52–79; RESP 19–20
[2019-01-19] MEDS: ASPIRIN 81 MG TAB PO SCH (08:36)
[2019-01-19] MEDS ORDERED: LOSARTAN 50 MG TAB PO SCH (09:00)
[2019-01-19] MEDS ORDERED: hydrALAzine 20 MG INJ IV PRN (09:30)
[2019-01-19] MEDS: ATORVASTATIN 40 MG TAB PO SCH (20:12)
[2019-01-20 03:30] VITALS: BP 136/61; PULSE 72; RESP 19
[2019-01-20 07:36] VITALS: BP 135/62; PULSE 68; RESP 18
[2019-01-20] MEDS: ASPIRIN 81 MG TAB PO SCH (08:18)
[2019-01-20] MEDS: LOSARTAN 50 MG TAB PO SCH (08:19)
[2019-01-20] MEDS ORDERED: traMADol 50 MG TAB PO PRN (11:00)
[2019-01-20 12:14] VITALS: BP 126/60; PULSE 76; RESP 18
[2019-01-20 15:00] VITALS: BP 126/58; PULSE 71; RESP 18
[2019-01-20 19:45] VITALS: BP 138/63; PULSE 70; RESP 18
[2019-01-20] MEDS: ATORVASTATIN 40 MG TAB PO SCH (20:35)
[2019-01-20 23:49] VITALS: BP 142/70; PULSE 67; RESP 18
[2019-01-21 03:42] VITALS: BP 115/56; PULSE 60; RESP 18
[2019-01-21 07:36] VITALS: BP 128/58; PULSE 64; RESP 18
[2019-01-21] MEDS: ASPIRIN 81 MG TAB PO SCH (08:50)
[2019-01-21] MEDS: LOSARTAN 50 MG TAB PO SCH (08:51)
[2019-01-21] MEDS ORDERED: METOPROLOL (XL) 25 MG TAB PO SCH ×2 (10:30→11:30)
[2019-01-21 11:27] VITALS: BP 134/62; PULSE 67; RESP 18
[2019-01-21 14:02] VITALS: BP 142/64; PULSE 74
== END 2019-01-21 15:44 | disposition home or self-care (01) | DRG 65 ==
LOC: E/R 18:03 → 6WM 19:34
PROVIDERS: ADMIT Family Medicine; ATTEND Internal Medicine
PROC: 3E0F7GC Introduction of Other Therapeutic Substance into Respiratory Tract, Via Natural or Artificial Opening (ICD-10-PCS; principal; 2019-01-16)
DX: I63.9 Cerebral infarction, unspecified (principal); I16.1 Hypertensive emergency; J44.9 Chronic obstructive pulmonary disease, unspecified; I48.0 Paroxysmal atrial fibrillation; R47.81 Slurred speech; R29.810 Facial weakness; R20.0 Anesthesia of skin; E66.9 Obesity, unspecified; Z68.38 Body mass index [BMI] 38.0-38.9, adult; J45.909 Unspecified asthma, uncomplicated; I10 Essential (primary) hypertension; E78.5 Hyperlipidemia, unspecified
CPT/HCPCS: 36415; 70450; 70496; 70498; 70544; 70549; 70551; 71045; 73520; 80048; 80053; 80061; 80307; 81003; 82550; 82553; 82962; 83036; 83735; 84100; 84484; 85025; 85610; 85651; 85730; 86592; 86850; 86900; 86901; 92523; 92610; 93005; 93306; 93880; 96374; 97161; 97166; J0360; J2997; J7030; Q9967